=== PATIENT | male | born 1940 | race Caucasian/White ===

== ENCOUNTER → 2019-03-07 | Outpatient (CLI) | payer OTHER | LOC: EMCIMAGING 09:55 | PROVIDERS: ATTEND Neurological Surgery | DX: M51.36 Other intervertebral disc degeneration, lumbar region (principal); M84.48XA Pathological fracture, other site, initial encounter for fracture; M54.5 Low back pain | CPT/HCPCS: 72157-PN; 72158-PN ==

== ENCOUNTER 2019-04-08 05:41 | Inpatient (IN) | payer OTHER | END 2019-04-12 15:14 | LOC: F3N 05:41 ==